=== PATIENT | male | born 1950 | race Two or more races ===

== ENCOUNTER 2023-07-02 08:50 | Day surgery (SDC) | payer MEDICARE, OTHER ==
[2023-07-02 12:39] LABS: BASO % 0.5 % (0-2.0); HEMATOCRIT 41.1 % (35.4-49); HEMOGLOBIN 14.2 GM/dL (11.7-16.9); LYMPH % 13.4 % (8-40); MCHC 34.6 g/dl (32.0-35.9); MEAN CELL VOLUME 92.4 fl (80-96); MEAN PLT VOLUME 7.6 fl (7.5-11.1); MONO % 7.8 % (3.8-10.2); NEUT % 76.3 % (42.8-82.8); PLATELET COUNT 259 10^3/uL (134-434); RBC 4.45 M/mm3 (4.00-5.60); RDW 13.4 % (11.9-15.9); WHITE BLOOD COUNT 12.4 K/mm3 (4.0-10.0)
[2023-07-02 12:45] LABS: INR 0.98 (0.83-1.09); PROTHROMBIN TIME (PATIENT) 11.3 SEC (9.7-13.0)
[2023-07-02 12:47] LABS: ACTIVATED PTT 30.9 SECONDS (25.2-36.5)
[2023-07-02 13:01] LABS: ALBUMIN 3.7 g/dl (3.4-5.0); CALCIUM 9.1 mg/dL (8.5-10.1)
[2023-07-02 13:04] LABS: CREATININE 0.8 mg/dL (0.55-1.3)
[2023-07-02 13:06] LABS: BILIRUBIN,TOTAL 0.6 mg/dL (0.2-1)
[2023-07-02] MEDS ORDERED: FENTANYL CITRATE/PF 50 MCG/ML VIAL ONE (14:38)
[2023-07-02] MEDS ORDERED: morphine SULFATE 4 MG/ML VIAL ONE (19:41)
[2023-07-02] MEDS: morphine CARPU-JECT 4 MG/1 ML DISP.SYRIN IVPUSH ONE (19:52)
[2023-07-02 20:20] LABS: EPI CELLS 2 /uL (0-25.1); HYALINE CASTS 0 /uL (0-3.1); PH,URINE 5.5 (5.0-8.0); URINE APPEARANCE CLOUDY; URINE BACTERIA 1 /uL (0-1359); URINE BILIRUBIN NEGATIVE (NEGATIVE); URINE COLOR RED; URINE GLUCOSE (UA) NEGATIVE (NEGATIVE); URINE KETONE NEGATIVE (NEGATIVE); URINE LEUK ESTERASE 1+ (NEGATIVE); URINE NITRITE NEGATIVE (NEGATIVE); URINE PROTEIN TRACE (NEGATIVE); URINE RBC 16930 /uL (0-23.9); URINE UROBILINOGEN 0.2 mg/dL (0.2-1.0); URINE WBC 52 /uL (0-25.8)
[2023-07-02] MEDS ORDERED: morphine CARPU-JECT 2 MG/1 ML DISP.SYRIN IVPUSH PRN (21:41)
[2023-07-02] MEDS: SODIUM CHLORIDE 1,000 ML IV SCH (21:56)
[2023-07-02] MEDS: INSULIN ASPART SLIDING SCALE (NOVOLOG) 1 VIAL SQ SCH (22:04)
[2023-07-02] MEDS ORDERED: ATORVASTATIN CA 20 MG TABLET (FP) ONE (23:03)
[2023-07-02] MEDS ORDERED: traZODone HCL 50 MG TABLET (FP) ONE (23:04)
[2023-07-02] MEDS ORDERED: TAMSULOSIN HCL 0.4 MG CAP ONE (23:04)
[2023-07-02] MEDS ORDERED: LISINOPRIL 10 MG TABLET ONE (23:04)
[2023-07-02] MEDS: ATORVASTATIN CA 20 MG TABLET (FP) PO SCH (23:14)
[2023-07-02] MEDS: traZODone HCL 50 MG TABLET (FP) PO SCH (23:14)
[2023-07-02] MEDS: LISINOPRIL 10 MG TABLET PO SCH (23:14)
[2023-07-02] MEDS: TAMSULOSIN HCL 0.4 MG CAP PO ONE (23:14)
[2023-07-03 00:58] VITALS: BMI 32.5
[2023-07-03] MEDS ORDERED: TAMSULOSIN HCL 0.4 MG CAP PO SCH (08:30)
[2023-07-03 09:37] LABS: HEMATOCRIT 39.5 % (35.4-49); HEMOGLOBIN 13.4 GM/dL (11.7-16.9); MCH 31.5 pg (25.7-33.7); MEAN CELL VOLUME 92.7 fl (80-96); MEAN PLT VOLUME 7.7 fl (7.5-11.1); PLATELET COUNT 244 10^3/uL (134-434); RBC 4.26 M/mm3 (4.00-5.60); RDW 13.5 % (11.9-15.9); WHITE BLOOD COUNT 11.4 K/mm3 (4.0-10.0)
[2023-07-03] MEDS ORDERED: SOLIFENACIN SUCCINATE 5 MG TAB PO SCH (10:00)
[2023-07-03] MEDS ORDERED: FINASTERIDE 5 MG TABLET (FP) PO SCH (10:00)
[2023-07-03 10:08] LABS: POTASSIUM 3.9 mmol/L (3.5-5.1)
[2023-07-03 10:14] LABS: CALCIUM 8.6 mg/dL (8.5-10.1)
[2023-07-03 10:15] LABS: ALBUMIN 3.3 g/dl (3.4-5.0); BLOOD UREA NITROGEN 21.7 mg/dL (7-18); MAGNESIUM 1.8 mg/dL (1.8-2.4)
[2023-07-03 10:17] LABS: CREATININE 0.9 mg/dL (0.55-1.3); PHOSPHOROUS 4.1 mg/dL (2.5-4.9)
[2023-07-03 10:18] LABS: TOT PROT 6.2 g/dl (6.4-8.2)
[2023-07-03 10:19] LABS: BILIRUBIN,TOTAL 0.7 mg/dL (0.2-1)
[2023-07-03] MEDS: TIMOLOL MALEATE 0.25% GEL OPHTHALMIC SOLN 5 ML BOTTLE OU SCH (10:37)
[2023-07-03] MEDS: SERTRALINE HCL 50 MG TABLET (FP) PO SCH (10:37)
[2023-07-03] MEDS: amLODIPine BESYLATE 5 MG TABLET (FP) PO SCH (10:37)
[2023-07-03] MEDS: POLYETHYLENE GLYCOL (HEALTHYLAX) 3350 17 GM PACKET PO SCH (10:37)
[2023-07-03] MEDS: MINERAL OIL ENEMA 133 ML ENEMA RC ONE ×2 (10:39→15:35)
[2023-07-03] MEDS: MAGNESIUM CITRATE 300 ML BOTTLE PO ONE (10:39)
[2023-07-03] MEDS: ACETAMINOPHEN 1000 MG/100 ML BAG IVPB PRN (12:16)
[2023-07-03] MEDS: PATIENT'S OWN MEDICATION (NON-FORMULARY) (Icosapent Ethyl [Vascepa] 1 GM Capsule) PO SCH (14:55)
[2023-07-03] MEDS: CEFTRIAXONE 1 GM in DEXTROSE 5%-WATER - 50 ML IVPB ONE (14:57)
[2023-07-03] MEDS ORDERED: ONDANSETRON 4 MG/2 ML VIAL IVPUSH PRN ×3 (16:10→19:09)
[2023-07-03] MEDS ORDERED: MIDAZOLAM HCL 2 MG/2 ML SINGLE DOSE VIAL ONE (16:13)
[2023-07-03] MEDS ORDERED: PROPOFOL 20 ML ONE ×2 (16:13→16:25)
[2023-07-03] MEDS ORDERED: FENTANYL CITRATE/PF 50 MCG/ML VIAL ONE (16:13)
[2023-07-03] MEDS ORDERED: SEVOFLURANE 250 ML BTL ONE (16:14)
[2023-07-03] MEDS ORDERED: LIDOCAINE HCL/PF 2% SDV 5ML VIAL ONE (16:14)
[2023-07-03] MEDS ORDERED: KETOROLAC TROMETHAMINE 30 MG/1 ML VIAL ONE (16:14)
[2023-07-03] MEDS ORDERED: ONDANSETRON 4 MG/2 ML VIAL ONE (16:14)
[2023-07-03] MEDS ORDERED: LACTATED RINGERS SOLUTION 1,000 ML IV SCH ×2 (16:15→17:50)
[2023-07-03] MEDS: IOHEXOL 300 MG/ML INFUS..BTL IV ONE (17:04)
[2023-07-03 19:10] VITALS: RESP 18
[2023-07-03] MEDS: traZODone HCL 50 MG TABLET (FP) PO SCH (22:59)
[2023-07-03] MEDS: ATORVASTATIN CA 20 MG TABLET (FP) PO SCH (22:59)
[2023-07-04] MEDS ORDERED: TAMSULOSIN HCL 0.4 MG CAP PO SCH (08:30)
[2023-07-04] MEDS: TAMSULOSIN HCL 0.4 MG CAP PO SCH (08:54)
[2023-07-04 09:26] LABS: HEMATOCRIT 38.7 % (35.4-49); HEMOGLOBIN 12.8 GM/dL (11.7-16.9); MCH 31.2 pg (25.7-33.7); MCHC 32.9 g/dl (32.0-35.9); MEAN CELL VOLUME 94.7 fl (80-96); MEAN PLT VOLUME 7.9 fl (7.5-11.1); PLATELET COUNT 232 10^3/uL (134-434); RBC 4.09 M/mm3 (4.00-5.60); RDW 13.7 % (11.9-15.9)
[2023-07-04 09:53] LABS: POTASSIUM 4.2 mmol/L (3.5-5.1)
[2023-07-04 09:55] LABS: BLOOD UREA NITROGEN 21.6 mg/dL (7-18); CALCIUM 8.3 mg/dL (8.5-10.1)
[2023-07-04 09:57] LABS: CREATININE 0.8 mg/dL (0.55-1.3)
[2023-07-04 10:00] LABS: BILIRUBIN,TOTAL 0.5 mg/dL (0.2-1); TOT PROT 5.8 g/dl (6.4-8.2)
[2023-07-04] MEDS: CEFTRIAXONE 1 GM in DEXTROSE 5%-WATER - 50 ML IVPB SCH (10:35)
[2023-07-04] MEDS: amLODIPine BESYLATE 5 MG TABLET (FP) PO SCH (10:36)
[2023-07-04] MEDS: LISINOPRIL 10 MG TABLET PO SCH (10:36)
[2023-07-04] MEDS: SERTRALINE HCL 50 MG TABLET (FP) PO SCH (10:36)
[2023-07-04] MEDS: FINASTERIDE 5 MG TABLET (FP) PO ONE (13:42)
[2023-07-04 14:48] VITALS: BP 124/64; PULSE 82; TEMP 98.6
[2023-07-04] MEDS ORDERED: POLYETHYLENE GLYCOL (HEALTHYLAX) 3350 17 GM PACKET PO SCH (16:13)
[2023-07-04] MEDS: ACETAMINOPHEN 1000 MG/100 ML BAG IVPB PRN (16:20)
[2023-07-05] MEDS ORDERED: FINASTERIDE 5 MG TABLET (FP) PO SCH (10:00)
== END 2023-07-04 18:06 | disposition home or self-care (01) ==
LOC: JER 08:50 → UNDOADMIN 19:20 → JERBED 19:20 → J5S 07-03 00:01 → JERBED 07-03 00:01 → JASUSAT 07-03 14:23 → J5S 07-03 14:32 → JASUSAT 07-03 14:32 → J5S 07-03 19:26 → UNDOADMIN 07-03 19:26 → JASUSAT 07-03 19:29 → J5S 07-03 19:29 → JASUSAT 07-04 16:47 → J5S 07-04 16:49 → JASUSAT 07-04 18:06
PROVIDERS: ATTEND Student in an Organized Health Care Education/Training Program
PROC: BT1FYZZ Fluoroscopy of Left Kidney, Ureter and Bladder using Other Contrast (ICD-10-PCS; principal; 2023-07-04)
PROC: 0T778DZ Dilation of Left Ureter with Intraluminal Device, Via Natural or Artificial Opening Endoscopic (ICD-10-PCS; 2023-07-04)
DX: N20.1 Calculus of ureter (principal)
CPT/HCPCS: 36415; 71045-TC-FY; 74177-TC; 76000-TC-FY; 76856-TC; 80053; 81003; 82962; 83036; 83690; 83735; 84100; 84484; 85025; 85027; 85610; 85730; 86850; 86900; 86901; 87086; 93005; 93010; 94760; 99285-25; C1758; C2617; J0131

== ENCOUNTER 2023-07-16 04:17 | Day surgery (SDC) | payer MEDICARE, OTHER ==
[2023-07-09 11:33] VITALS: BMI 32.4
[2023-07-16 08:53] VITALS: TEMP 98
[2023-07-16] MEDS ORDERED: MIDAZOLAM HCL 2 MG/2 ML SINGLE DOSE VIAL ONE (09:41)
[2023-07-16 11:29] VITALS: RESP 18
[2023-07-16 12:51] VITALS: BP 139/70; PULSE 62
== END 2023-07-16 12:05 | disposition home or self-care (01) ==
LOC: JASU-SURG 04:17
PROVIDERS: ATTEND Urology
PROC: 0TF4XZZ Fragmentation in Left Kidney Pelvis, External Approach (ICD-10-PCS; principal; 2023-07-16 10:00)
DX: N20.0 Calculus of kidney (principal)
CPT/HCPCS: 82962